=== PATIENT | female | born 1995 | race Two or more races ===

== ENCOUNTER 2017-01-05 19:06 | Emergency (ER) | payer OTHER ==
[2017-01-05] MEDS ORDERED: SODIUM CHLORIDE 0.9% 1,000 ML IV ONE ×2 (19:20)
== END 2017-01-05 20:52 | disposition home or self-care (01) ==
DX: O26.891 Other specified pregnancy related conditions, first trimester (principal); E86.0 Dehydration; O21.1 Hyperemesis gravidarum with metabolic disturbance; Z3A.09 9 weeks gestation of pregnancy

== ENCOUNTER 2017-01-13 09:14 | Emergency (ER) | payer OTHER ==
[2017-01-13] MEDS ORDERED: ONDANSETRON 4 MG/2 ML VIAL IVP STA (10:55)
[2017-01-13] MEDS ORDERED: SODIUM CHLORIDE 0.9% 1,000 ML IV ONE (10:55)
[2017-01-13] MEDS ORDERED: ONDANSETRON 4 MG/2 ML VIAL ONE (10:57)
== END 2017-01-13 13:00 | disposition home or self-care (01) ==
DX: O21.1 Hyperemesis gravidarum with metabolic disturbance (principal); E86.0 Dehydration; Z3A.10 10 weeks gestation of pregnancy; O99.89 Other specified diseases and conditions complicating pregnancy, childbirth and the puerperium; R51 Headache